=== PATIENT | female | born 1990 | race Caucasian/White ===

== ENCOUNTER 2017-02-07 19:01 | Emergency (ER) | payer MEDICAID ==
[2017-02-07] MEDS ORDERED: Ketorolac INJ* 60 MG/2 ML VIAL IM ONE (21:03)
[2017-02-07] MEDS ORDERED: Cyclobenzaprine TAB* 10 MG PO ONE ×2 (21:03→22:31)
--- NOTE | 2017-02-07 22:15 | RAD ---
Indication: RIGHT jaw pain post fall. Pain chewing and opening the mouth. Comparison: None. Technique: 4 view mandible series. Report: Metallic jewelry at the RIGHT nare. Dental amalgam at the jaws. No mandibular fracture evident. The temporomandibular joints are not well visualized limiting assessment. Alignment at the jaws appears grossly normal. IMPRESSION: No mandibular fracture evident. Assessment limited due to poor visualization of the temporomandibular joints.
[2017-02-07 23:09] VITALS: BP 118/78
--- NOTE | 2017-02-13 11:51 | ED ---
Throat Pain/Nasal Congestion - HPI Summary HPI Summary: Pt here w/ Rt sided jaw pain since falling out of bed a few weeks ago. States she was having a dream and knocked herself out of bed. Pain wasn't so bad at first, but has noticed difficulty chewing and moving jaw on Rt since injury. Denies LOC, neck pain, BERG, trouble breathing or swallowing. Pain does radiate at times up and down side of face. She is still able to eat and drink. Denies sharp edges of teeth palpated in her mouth nor tastes of blood and no swelling. No h/o TMJ or grinding her teeth that she's aware. - History of Current Complaint Chief Complaint: EDDentalPain Time Seen by Provider: 02/07/17 20:16 Hx Obtained From: Patient - Allergies/Home Medications Allergies/Adverse Reactions: Allergies Allergy/AdvReac Type Severity Reaction Status Date / Time No Known Allergies Allergy Verified 02/07/17 19:43 PMH/Surg Hx/FS Hx/Imm Hx Previously Healthy: Yes Endocrine/Hematology History: Denies: Hx Anticoagulant Therapy, Hx Blood Disorders, Hx Unexplained Bleeding Musculoskeletal History: Denies: Hx Arthritis Psychiatric History: Reports: Hx Substance Abuse - ETOH - resides at [facility] Infectious Disease History: Yes Infectious Disease History: Denies: Traveled Outside the [place] in Last 30 Days - Social History Lives: Detention - [facility] Alcohol Use: None - Not currently drinking but h/o abuse Hx Substance Use: No Substance Use Type: Reports: None Smoking Status (MU): Unknown if Ever Smoked Review of Systems Constitutional: Negative Negative: Fever, Chills Negative: Photophobia, Blurred Vision, Diplopia Negative: Sore Throat, Ear Ache, Nasal Discharge Negative: Chest Pain Negative: Shortness Of Breath, Cough Negative: Abdominal Pain, Vomiting, Nausea Positive: no symptoms reported Musculoskeletal: Other - see HPI Negative: Bruising Negative: Headache, Weakness, Paresthesia, Numbness, Syncope, Slurred Speech Positive: Anxious All Other Systems Reviewed And Are Negative: Yes Physical Exam Triage Information Reviewed: Yes Vital Signs On Initial Exam: Initial Vitals Temp Pulse Resp BP Pulse Ox 97.8 F 76 16 106/66 96 02/07/17 19:37 02/07/17 19:37 02/07/17 19:37 02/07/17 19:37 02/07/17 19:37 Vital Signs Reviewed: Yes Appearance: Positive: Well-Appearing, Well-Nourished, Pain Distress - mild Skin: Positive: Warm, Dry - no ecchymosis or edema over affected area Head/Face: Positive: Normal Head/Face Inspection - no gross deformity of facial structures Eyes: Positive: Normal, EOMI, MARQUIS, Conjunctiva Clear ENT: Positive: Normal ENT inspection, Hearing grossly normal, Pharynx normal, TMs normal - no hemotympanum. Negative: Trismus, Muffled/hoarse voice Dental: Negative: Percussion Tenderness @, Dental Fracture @ Neck: Positive: Supple, Nontender, No Lymphadenopathy Respiratory/Lung Sounds: Positive: Clear to Auscultation, Breath Sounds Present Cardiovascular: Positive: Normal, RRR Bowel Sounds: Positive: Present Musculoskeletal: Positive: Strength/ROM Intact, Pain @ - Rt TMJ, mandible with TTP - no edema, no clicking, no gross malalignment observed or palpated - has pain w/ mandible depression however it not limited and no venessa laxity appreciated Neurological: Positive: Normal, Sensory/Motor Intact, Alert, Oriented to Person Place, Time, CN Intact II-III Psychiatric: Positive: Anxious Diagnostics - Vital Signs Vital Signs Temp Pulse Resp BP Pulse Ox 02/07/17 23:07 97.9 F 79 16 118/78 02/07/17 19:37 97.8 F 76 16 106/66 96 - Laboratory Lab Statement: Any lab studies that have been ordered have been reviewed, and results considered in the medical decision making process. EENT Course/Dx - Course Course Of Treatment: Pt presents w/ Rt side jaw pain which developed after falling out of bed a few weeks ago. Imaging does not reveal fx or dislocation although it is noted TMJ is poorly observed. Based on clinical exam it was discussed there may have been injury to the TMJ and medications will be rx'd as in d/c. Advised to f/u w/ specialist in the event further imaging, tx, etc are recommended. Also educated about hydration and nutrition via liquids, softs foods, etc. Pt agrees w/ plan. - Diagnoses Provider Diagnoses: Jaw pain Discharge - Discharge Plan Condition: Stable Disposition: HOME Prescriptions: Cyclobenzaprine TAB* [Flexeril 10 MG TAB*] 10 mg PO TID PRN #15 tab PRN Reason: Pain Patient Education Materials: Temporomandibular Disorder (ED) Referrals: Ryder Oneal MD [Doctor of Dental Medicine] - Additional Instructions: You appear to have a TMJ injury as the result of a fall from bed. This pain is worsening and requires oral surgery consult for further investigation. You may continue ibuprofen alternating with acetaminophen and take flexeril for breakthrough pain as needed. It is important that you stay hydrated and well nourished - drink liquids through a straw, including but not limited to water, gatorade, broth, yogurt, etc. It is also important that you rinse your mouth with mouthwash to prevent bacterial buildup as you may not be brushing due to pain. Call oral surgeon tomorrow to schedule an appointment NANCY. *If you have difficulty breathing or swallowing, return to ED
== END 2017-02-07 23:07 | disposition home or self-care (01) ==
LOC: ED 19:01
DX: R68.84 Jaw pain (principal); K08.89 Other specified disorders of teeth and supporting structures; F41.9 Anxiety disorder, unspecified
CPT/HCPCS: 70110; 96372; 99282; A9270-GY; J1885